=== PATIENT | female | born 1950 | race Caucasian/White ===

== ENCOUNTER 2018-04-29 05:58 | Inpatient (IN) | payer OTHER, BC ==
[2018-04-29] MEDS: CLINDAMYCIN 900 MG/D5W (PMX) 50 ML IVPB (06:30)
[2018-04-29] MEDS ORDERED: CLINDAMYCIN 900 MG/50 ML D5W IVPB IVPB (07:00)
[2018-04-29] MEDS ORDERED: BUPIVACAINE 0.75% (MPF) 10 ML INJ (07:00)
[2018-04-29] MEDS ORDERED: DEXTROSE 5%-LR 1,000 ML IV (07:00)
[2018-04-29] MEDS ORDERED: MEPERIDINE 25 MG INJ IV (08:00)
[2018-04-29] MEDS ORDERED: OXYCODONE/ACETAMINOPHEN (5/325) TAB PO ×2 (08:00)
[2018-04-29] MEDS ORDERED: MIDAZOLAM 1 MG/ML 2 ML INJ IV (08:00)
[2018-04-29] MEDS ORDERED: FENTAnyl 50 MCG/ML VIAL IV ×3 (08:00)
[2018-04-29] MEDS ORDERED: ZOLPIDEM 5 MG TAB PO ×2 (08:00→11:00)
[2018-04-29] MEDS ORDERED: EPHEDrine SULFATE 50 MG/5 ML SYG IV (08:00)
[2018-04-29] MEDS ORDERED: HYDROmorphONE 1 MG/5 ML IV SYRINGE IV ×3 (08:00)
[2018-04-29] MEDS ORDERED: LABETALOL HCL 20MG INJ IV (08:00)
[2018-04-29] MEDS ORDERED: DIPHENHYDRAMINE 50 MG INJ IV ×2 (08:00)
[2018-04-29] MEDS ORDERED: TRIMETHOBENZAMIDE 100 MG/ML VIAL IM ×2 (08:00)
[2018-04-29] MEDS ORDERED: HYDROmorphONE 0.5 MG/0.5 ML SYG IV ×3 (08:00→11:00)
[2018-04-29] MEDS ORDERED: KETOROLAC 30 MG INJ IV (08:00)
[2018-04-29] MEDS ORDERED: NALBUPHINE HCL (10 MG/1 ML) INJ IV (08:00)
[2018-04-29] MEDS ORDERED: IPRATROPIUM (NEB) 0.5 MG/2.5 ML AMP HHN (08:00)
[2018-04-29] MEDS ORDERED: hydrALAzine 20 MG INJ IV (08:00)
[2018-04-29] MEDS ORDERED: NALOXONE (0.4 MG/ML) INJ IV (08:00)
[2018-04-29] MEDS ORDERED: ALBUTEROL 0.083% (NEB) 2.5 MG/3 ML AMP HHN (08:00)
[2018-04-29] MEDS ORDERED: ONDANSETRON 4 MG INJ IV ×2 (08:00)
[2018-04-29] MEDS ORDERED: ROCURONIUM 50 MG INJ (08:01)
[2018-04-29] MEDS ORDERED: PROPOFOL 20 ML (08:01)
[2018-04-29] MEDS ORDERED: GLYCOPYRROLATE 0.4 MG INJ (08:01)
[2018-04-29] MEDS ORDERED: CEFAZOLIN 1 GM INJ (08:01)
[2018-04-29] MEDS ORDERED: NEOSTIGMINE 3 MG/3 ML SYRINGE (08:01)
[2018-04-29] MEDS ORDERED: EPINEPHrine 1 MG INJ (08:02)
[2018-04-29] MEDS ORDERED: MIDAZOLAM 1 MG/ML 2 ML INJ (08:02)
[2018-04-29] MEDS ORDERED: morphine SULFATE/PF (10 MG/10 ML) INJ (08:02)
[2018-04-29] MEDS ORDERED: DEXAMETHASONE 4 MG/ML 1 ML INJ (08:02)
[2018-04-29] MEDS ORDERED: FENTAnyl 50 MCG/ML VIAL (08:02)
[2018-04-29] MEDS ORDERED: ONDANSETRON 4 MG INJ (08:02)
[2018-04-29] MEDS: LIDOCAINE 1%/EPI 30 ML INJ (08:59)
[2018-04-29] MEDS: HEMOSTATIC MATRIX SYG ZFS (09:00)
[2018-04-29] MEDS: POLYMYXIN/BACITRACIN 1L IRRIG (09:00)
[2018-04-29] MEDS: THROMBIN 5000 UNIT VIAL (09:00)
[2018-04-29] MEDS ORDERED: SUGAMMADEX SODIUM 200 MG/2 ML VIAL IV (10:35)
[2018-04-29] MEDS ORDERED: DIPHENHYDRAMINE 50 MG CAP PO (11:00)
[2018-04-29] MEDS ORDERED: ONDANSETRON INJ 6 MG in DEXTROSE 5% 50 ML IVPB (11:00)
[2018-04-29] MEDS: KETOROLAC 30 MG INJ IV ×2 (12:34→18:19)
[2018-04-29] MEDS: METOCLOPRAMIDE 10 MG TAB PO ×2 (12:35→18:19)
[2018-04-29] MEDS: LACTATED RINGER'S 1,000 ML IV ×2 (12:48→18:21)
[2018-04-29] MEDS: CLINDAMYCIN 600 MG/D5W (PMX) 50 ML IVPB ×2 (14:59→20:59)
[2018-04-29] MEDS: HYDROCODONE/APAP (5/325) TAB PO (20:59)
[2018-04-30] MEDS: KETOROLAC 30 MG INJ IV ×5 (00:29→23:12)
[2018-04-30] MEDS: METOCLOPRAMIDE 10 MG TAB PO ×5 (00:30→23:12)
[2018-04-30] MEDS: CLINDAMYCIN 600 MG/D5W (PMX) 50 ML IVPB ×3 (02:01→15:29)
[2018-04-30] MEDS: HYDROCODONE/APAP (5/325) TAB PO ×3 (02:48→18:55)
[2018-04-30] MEDS: LACTATED RINGER'S 1,000 ML IV ×2 (03:12→15:33)
[2018-04-30 04:53] LABS: WHITE BLOOD COUNT 11.7 10^3/ul (4.8-10.8)
[2018-04-30 04:53] LABS: ADD MAN DIFF? NO; BASOPHILS % 0.1 % (0.0-2.0); HEMATOCRIT 35.3 % (37.0-47.0); HEMOGLOBIN 11.8 g/dl (12.0-16.0); LYMPHOCYTES # 0.9 10^3/ul (0.8-2.9); LYMPHOCYTES % 7.3 % (15.0-51.0); MEAN CORPUSCULAR HEMOGLOBIN 31.1 pg (29.0-33.0); MEAN CORPUSCULAR HGB CONC 33.4 g/dl (32.0-37.0); MEAN CORPUSCULAR VOLUME 92.9 fl (82.0-101.0); MEAN PLATELET VOLUME 10.4 fl (7.4-10.4); MONOCYTE # 0.4 10^3/ul (0.3-0.9); MONOCYTES % 3.8 % (0.0-11.0); NEUTROPHIL # 10.4 10^3/ul (1.6-7.5); NEUTROPHILS % 88.4 % (39.0-77.0); PLATELET COUNT 179 10^3/UL (140-415); RED CELL DISTRIBUTION WIDTH 13.4 % (11.5-14.5)
[2018-04-30 05:19] LABS: ANION GAP 10 (8-16); BLOOD UREA NITROGEN 11 mg/dl (7-20); CARBON DIOXIDE 27 mmol/L (21-31); CHLORIDE 108 mmol/L (97-110); CREATININE 0.55 mg/dl (0.44-1.00); POTASSIUM 4.1 mmol/L (3.5-5.1); SODIUM 141 mmol/L (135-144)
[2018-04-30] MEDS: LOSARTAN 50 MG TAB PO (08:32)
[2018-04-30] MEDS: HYDROCHLOROTHIAZIDE 25 MG TAB PO (08:33)
[2018-04-30] MEDS: ALBUTEROL 0.083% (NEB) 2.5 MG/3 ML AMP HHN (16:54)
[2018-04-30] MEDS: ALBUTEROL HFA 8 GM INHALER INH ×3 (17:00→21:00)
[2018-04-30] MEDS: ALPRAZOLAM 0.25 MG TAB PO (20:30)
[2018-05-01] MEDS: HYDROCODONE/APAP (5/325) TAB PO (04:45)
[2018-05-01 05:17] LABS: ADD MAN DIFF? NO
[2018-05-01 05:19] LABS: BASOPHILS % 0.2 % (0.0-2.0); EOSINOPHILS % 0.1 % (0.0-7.0); HEMATOCRIT 33.8 % (37.0-47.0); HEMOGLOBIN 11.1 g/dl (12.0-16.0); LYMPHOCYTES # 2.5 10^3/ul (0.8-2.9); LYMPHOCYTES % 23.1 % (15.0-51.0); MEAN CORPUSCULAR HEMOGLOBIN 30.6 pg (29.0-33.0); MEAN CORPUSCULAR HGB CONC 32.8 g/dl (32.0-37.0); MEAN CORPUSCULAR VOLUME 93.1 fl (82.0-101.0); MEAN PLATELET VOLUME 10.8 fl (7.4-10.4); MONOCYTE # 0.9 10^3/ul (0.3-0.9); MONOCYTES % 8.1 % (0.0-11.0); NEUTROPHIL # 7.3 10^3/ul (1.6-7.5); NEUTROPHILS % 68.2 % (39.0-77.0); PLATELET COUNT 177 10^3/UL (140-415); RED BLOOD COUNT 3.63 10^6/ul (4.20-5.40); RED CELL DISTRIBUTION WIDTH 13.9 % (11.5-14.5)
[2018-05-01 05:19] LABS: WHITE BLOOD COUNT 10.8 10^3/ul (4.8-10.8)
[2018-05-01] MEDS: KETOROLAC 30 MG INJ IV (05:28)
[2018-05-01] MEDS: METOCLOPRAMIDE 10 MG TAB PO ×2 (05:29→12:03)
[2018-05-01] MEDS: ALBUTEROL HFA 8 GM INHALER INH ×2 (08:11→12:04)
[2018-05-01] MEDS: LOSARTAN 50 MG TAB PO (08:12)
[2018-05-01] MEDS: HYDROCHLOROTHIAZIDE 25 MG TAB PO (08:13)
[2018-05-01] MEDS: ALPRAZOLAM 0.25 MG TAB PO (08:13)
== END 2018-05-01 14:00 | disposition home or self-care (01) | DRG 743 ==
LOC: REC 05:58 → MS1 11:48
PROC: 0UT97ZZ Resection of Uterus, Via Natural or Artificial Opening (ICD-10-PCS; principal; 2018-04-29 08:00)
PROC: 0TSD0ZZ Reposition Urethra, Open Approach (ICD-10-PCS; 2018-04-29 08:00)
PROC: 0JUC0KZ Supplement of Pelvic Region Subcutaneous Tissue and Fascia with Nonautologous Tissue Substitute, Open Approach (ICD-10-PCS; 2018-04-29 08:00)
DX: N81.3 Complete uterovaginal prolapse (principal); N39.46 Mixed incontinence; E78.5 Hyperlipidemia, unspecified; I10 Essential (primary) hypertension; K59.00 Constipation, unspecified; J45.909 Unspecified asthma, uncomplicated; R73.03 Prediabetes
CPT/HCPCS: 80051; 82565; 84520; 85025; 87086; 88305; 93005; 94640